=== PATIENT | female | born 1970 | race Caucasian/White ===

== ENCOUNTER 2021-08-29 04:15 | Day surgery (SDC) | payer BC ==
[2021-08-28 11:38] VITALS: BMI 35.1
[2021-08-29] MEDS ORDERED: KETOROLAC TROMETHAMINE 30 MG/1 ML VIAL ONE ×2 (14:08→15:35)
[2021-08-29] MEDS ORDERED: LIDOCAINE HCL/PF 2% SDV 5ML VIAL ONE (14:08)
[2021-08-29] MEDS ORDERED: PROPOFOL 20 ML ONE (14:08)
[2021-08-29] MEDS ORDERED: MIDAZOLAM HCL 2 MG/2 ML SINGLE DOSE VIAL ONE (14:08)
[2021-08-29] MEDS ORDERED: DEXAMETHASONE SOD PHOSPHATE 4 MG/1 ML VIAL ONE (14:24)
[2021-08-29] MEDS ORDERED: SEVOFLURANE 250 ML BTL ONE (14:29)
[2021-08-29] MEDS ORDERED: IBUPROFEN 800 MG/8 ML IJ IVPB PRN (14:58)
[2021-08-29] MEDS ORDERED: IBUPROFEN 600 MG TABLET (FP) PO PRN (14:58)
[2021-08-29] MEDS ORDERED: oxyCODONE HCL 5 MG TABLET PO PRN (14:58)
[2021-08-29] MEDS ORDERED: ONDANSETRON 4 MG/2 ML VIAL IVPUSH PRN (14:58)
[2021-08-29] MEDS ORDERED: ELECTROLYTE-148 SOLN 1,000 ML IV SCH (15:00)
[2021-08-29] MEDS ORDERED: ACETAMINOPHEN INJECTION 100 ML IVPB ONE (15:07)
[2021-08-29] MEDS ORDERED: ACETAMINOPHEN 1000 MG/100 ML BAG IVPB ONE (15:10)
[2021-08-29] MEDS ORDERED: LACTATED RINGERS SOLUTION 1,000 ML IV SCH (15:15)
[2021-08-29] MEDS ORDERED: HYDROmorphone HCl 2 MG/ML VIAL ONE (15:35)
[2021-08-29] MEDS ORDERED: KETOROLAC TROMETHAMINE 30 MG/1 ML VIAL IVPUSH ONE (15:41)
[2021-08-29] MEDS ORDERED: HYDROmorphone HCl 2 MG/ML VIAL IVPUSH ONE (15:41)
[2021-08-29] MEDS ORDERED: HYDROmorphone HCL CARPU-JECT 2 MG/1 ML DISP.SYRIN IVPUSH PRN (16:44)
[2021-08-29] MEDS ORDERED: HYDROmorphone HCl 2 MG/ML VIAL IVPUSH PRN (16:58)
[2021-08-29 18:18] VITALS: BP 151/80; PULSE 87; TEMP 98
== END 2021-08-29 18:20 | disposition home or self-care (01) ==
LOC: JASU-SURG 04:15
PROVIDERS: ATTEND Obstetrics & Gynecology
PROC: 0U5B8ZZ Destruction of Endometrium, Via Natural or Artificial Opening Endoscopic (ICD-10-PCS; principal; 2021-08-29 14:00)
DX: N92.1 Excessive and frequent menstruation with irregular cycle (principal)
CPT/HCPCS: 94760

== ENCOUNTER 2024-02-23 04:15 | Day surgery (SDC) | payer BC ==
[2024-02-19 16:40] VITALS: BMI 36.2
[2024-02-23] MEDS ORDERED: ONDANSETRON 4 MG/2 ML VIAL IVPUSH PRN ×3 (08:45→11:34)
[2024-02-23] MEDS ORDERED: oxyCODONE HCL 5 MG TABLET PO PRN ×3 (08:45→11:34)
[2024-02-23] MEDS ORDERED: LACTATED RINGERS SOLUTION 1,000 ML IV SCH ×2 (08:45→11:45)
[2024-02-23] MEDS ORDERED: MIDAZOLAM HCL 2 MG/2 ML SINGLE DOSE VIAL ONE (10:51)
[2024-02-23] MEDS ORDERED: PROPOFOL 20 ML ONE (10:59)
[2024-02-23] MEDS ORDERED: IBUPROFEN 800 MG/8 ML IJ IVPB PRN (11:30)
[2024-02-23] MEDS ORDERED: ELECTROLYTE-148 SOLN 1,000 ML IV SCH (11:30)
[2024-02-23] MEDS ORDERED: IBUPROFEN 600 MG TABLET (FP) PO PRN (11:30)
[2024-02-23 13:31] VITALS: RESP 18
[2024-02-23 14:25] VITALS: BP 165/89; PULSE 85; TEMP 98
== END 2024-02-23 14:34 | disposition home or self-care (01) ==
LOC: JASU-SURG 04:15
PROVIDERS: ATTEND Obstetrics & Gynecology
PROC: 0UB98ZZ Excision of Uterus, Via Natural or Artificial Opening Endoscopic (ICD-10-PCS; principal; 2024-02-23 10:30)
DX: N92.1 Excessive and frequent menstruation with irregular cycle (principal); D25.1 Intramural leiomyoma of uterus; N84.0 Polyp of corpus uteri
CPT/HCPCS: 81025; 88305-TC; 88307-TC; 94760